=== PATIENT | female | born 1975 | race Caucasian/White ===

== ENCOUNTER → 2017-08-05 | Outpatient (CLI) | payer OTHER | LOC: FIMAGING 10:49 | PROVIDERS: ATTEND Obstetrics & Gynecology | DX: Z12.31 Encounter for screening mammogram for malignant neoplasm of breast (principal) ==

== ENCOUNTER → 2017-09-02 | Outpatient (CLI) | payer OTHER | LOC: FIMAGING 09:08 | PROVIDERS: ATTEND Obstetrics & Gynecology | DX: R92.8 Other abnormal and inconclusive findings on diagnostic imaging of breast (principal) ==

== ENCOUNTER → 2018-05-06 | Outpatient (CLI) | payer OTHER | LOC: FIMAGING 10:16 | PROVIDERS: ATTEND Obstetrics & Gynecology | DX: R92.8 Other abnormal and inconclusive findings on diagnostic imaging of breast (principal) ==

== ENCOUNTER → 2018-05-11 | Day surgery (SDC) | payer OTHER ==
[~2018-05-11] MED LIST: BUPIVACAINE 0.5% 30 ML SDV ONE; LIDOCAINE 1% 300 MG/30 ML SDV ONE; THROMBIN (BOVINE) 5,000 UNIT VIAL TP ONE
== END | disposition home or self-care (01) ==
LOC: FIMAGING 08:05
PROVIDERS: ATTEND Obstetrics & Gynecology
PROC: 0HBT3ZX Excision of Right Breast, Percutaneous Approach, Diagnostic (ICD-10-PCS; principal; 2018-05-11)
DX: N60.11 Diffuse cystic mastopathy of right breast (principal); R92.0 Mammographic microcalcification found on diagnostic imaging of breast; N60.91 Unspecified benign mammary dysplasia of right breast

== ENCOUNTER 2018-06-26 06:34 | Day surgery (SDC) | payer OTHER ==
--- NOTE | 2018-06-24 08:54 | GHP ---
DATE OF ADMISSION: 06/26/2018 DATE OF SURGERY: 06/26/2018. PREOPERATIVE DIAGNOSIS: Right breast atypical ductal hyperplasia. HISTORY OF PRESENT ILLNESS: The patient is a 42-year-old woman who had her 1st mammogram in August 19, which showed architectural distortion at the 12 o'clock position of the right breast. She had a diagnostic mammogram in August, which showed mild asymmetry in the upper inner right breast. No suspi cious calcifications. BI-RADS 3. Recommended 6-month repeat imaging. She had a repeat diagnostic m ammogram and ultrasound on May 06, 2018, which revealed persistent architectural change. Ultraso und showed heterogeneous diminished echogenicity. BI-RADS 4. She had a stereotactic breast biopsy o n 05/11/2018, which revealed patchy atypical ductal hyperplasia with fibrocystic changes and microcal cifications. She does not have a family or personal history of breast health issues. No family hist ory of ovarian cancer. She has never had abnormal breast imaging prior to this. Her 1st menses was at age 13. Last menses was 05/01. She has a Mirena IUD. She is G4, P3, and was 27 years old at the of her 1st child. PAST MEDICAL HISTORY: None. PAST SURGICAL HISTORY: None. MEDICATIONS: None. ALLERGIES: No known drug allergies. FAMILY HISTORY: Father with multiple myeloma. Mother with hypertension, hyperlipidemia, trigeminal neuralgia, and coronary artery disease. Maternal grandmother with leukemia. SOCIAL HISTORY: She denies recreational drug use or tobacco use. She uses alcohol daily. She exerc ises 1-3 times per week. She is with 3 children. REVIEW OF SYSTEMS: 10-point review of systems negative aside from the HPI. PHYSICAL EXAMINATION: GENERAL: Well-developed, well-nourished woman in no acute distress. HEENT: Normocephalic, atraumatic. No hearing deficits. Pupils equal and round. No scleral icterus. Mucou s membranes moist. NECK: Trachea midline. RESPIRATORY: Clear to auscultation bilaterally. No inc reased work of breathing. CARDIOVASCULAR: Regular rate and rhythm. No peripheral edema. BREASTS: Performed in upright and supine position evidence of previous breast biopsy right upper outer breast . No palpable masses bilaterally. No nipple drainage. No overlying skin changes. LYMPH: No cervi hazel, supraclavicular, or axillary lymphadenopathy. SKIN: Warm and dry. PSYCH: Mood and affect nor mal. NEURO: Grossly intact. IMPRESSION AND PLAN: 42-year-old woman with a new diagnosis of right breast atypical ductal hyperpla paige. She presents for a right breast mammogram needle localized lumpectomy to rule out any adjacent ductal carcinoma in situ. We discussed risks of surgery, including but not limited to, infection, bl eeding, damage to surrounding structures, and need for additional procedures. She understands the ri sks and would like to proceed. She has also had an elevated risk of developing a breast cancer. Her Tyrer-Cuzick Model Score is 7.1%, 10-year risk (population 1.8%), and lifetime risk of 42.6% (popula tion 12.8%). We discussed high-risk breast cancer screening including annual mammogram with MRI alte rnating every 6 months, genetic testing, and chemo prevention. She had her questions answered to her satisfaction. The patient was additionally seen by Dr. Elisa Berkowitz. /[id number]/MODL
[2018-06-26] MEDS ORDERED: ceFAZolin 2 GM/DEXTROSE 100 ML IV ONE (06:43)
[2018-06-26] MEDS ORDERED: LR 1,000 ML IV ONE (06:44)
[2018-06-26] MEDS ORDERED: LIDOCAINE 1% 300 MG/30 ML SDV ONE (07:27)
--- NOTE | 2018-06-26 07:28 | PDHPUP ---
History & Physical Update H&P update statement: This history and physical update is based on an assessment of the patient which was completed after admission or registration (within 24 hours), but prior to the surgery/procedure. H&P update: H&P reviewed & patient examined, no change in patient's condition since H&P completed
[2018-06-26] MEDS ORDERED: BUPIVACAINE 0.5% 30 ML SDV ONE (07:34)
[2018-06-26] MEDS ORDERED: PROPOFOL/EMULSION 500 MG/50 ML BOTTLE IV ONE (09:29)
[2018-06-26] MEDS ORDERED: LIDOCAINE 2% 100 MG/5 ML SYR ONE (09:29)
[2018-06-26] MEDS ORDERED: ONDANSETRON 4 MG/2 ML VIAL ONE (09:29)
[2018-06-26] MEDS ORDERED: fentaNYL 100 MCG/2 ML INJ ONE ×2 (09:29→10:31)
[2018-06-26] MEDS ORDERED: DEXAMETHASONE 4 MG/ML VIAL ONE (09:29)
[2018-06-26] MEDS ORDERED: MIDAZOLAM 2 MG/2 ML VIAL ONE (09:57)
[2018-06-26] MEDS ORDERED: MIDAZOLAM 2 MG/2 ML VIAL IVP ONE (09:57)
--- NOTE | 2018-06-26 09:57 | PDANEPAE ---
ANE History of Present Illness breast mass, here for bx and mass removal ANE Past Medical History - Cardiovascular History Hx Hypertension: No Hx Arrhythmias: No Hx Chest Pain: No Hx Coronary Artery / Peripheral Vascular Disease: No Hx CHF / Valvular Disease: No Hx Palpitations: No - Pulmonary History Hx COPD: No Hx Asthma/Reactive Airway Disease: No Hx Recent Upper Respiratory Infection: No Hx Oxygen in Use at Home: No Hx Sleep Apnea: No Sleep Apnea Screening Result - Last Documented: Negative Pulmonary History Comment: CHRONIC NON PRODUCTIVE COUGH SINCE 05/2018 - Neurologic History Hx Cerebrovascular Accident: No Hx Seizures: No Hx Dementia: No - Endocrine History Hx Diabetes: No - Renal History Hx Renal Disorders: No - Liver History Hx Hepatic Disorders: No - Neurological & Psychiatric Hx Hx Neurological and Psychiatric Disorders: No - Cancer History Hx Cancer: No - Congenital Disorder History Hx Congenital Disorders: No - GI History Hx Gastrointestinal Disorders: Yes Gastrointestinal History Comment: INTERMITTENT HEARTBURN - Other Health History Other Health History: FAINTED POST NEEDLE BIOPSY - Chronic Pain History Chronic Pain: No - Surgical History Prior Surgeries: NONE ANE Review of Systems Review of Systems: - Exercise capacity METS (RN): 6 METS ANE Patient History - Allergies Allergies/Adverse Reactions: No Known Allergies Allergy (Unverified 06/24/18 08:23) - Home Medications Home Medications: Vitamin C DAILY 06/25/18 [Last Taken 06/19/18] - NPO status NPO Since - Liquids (Date): 06/25/18 NPO Since - Liquids (Time): 22:00 NPO Since - Solids (Date): 06/25/18 NPO Since - Solids (Time): 20:00 - Smoking Hx Smoking Status: Never smoked - Family Anes Hx Family Hx Anesthesia Complications: NEG ANE Labs/Vital Signs - Vital Signs Blood Pressure: 118/74 Heart Rate: 98 Respiratory Rate: 16 O2 Sat (%): 98 Height: 154.94 cm Weight: 63.503 kg ANE Physical Exam - Airway Neck exam: FROM Mallampati Score: Class 1 Mouth exam: normal dental/mouth exam - Pulmonary Pulmonary: no respiratory distress, no rales or rhonchi - Cardiovascular Cardiovascular: regular rate and rhythym, no murmur, rub, or gallop - ASA Status ASA Status: II ANE Anesthesia Plan Anesthesia Plan: GA with mask Total IV Anesthesia: Yes
[2018-06-26] MEDS ORDERED: NALOXONE HCL 0.4 MG/ML INJ IVP PRN (10:43)
[2018-06-26] MEDS ORDERED: LR 500 ML IV PRN (10:43)
[2018-06-26] MEDS ORDERED: HYDROCODONE/APAP 5/325 TAB PO PRN (10:43)
[2018-06-26] MEDS ORDERED: ONDANSETRON 4 MG/2 ML VIAL IVP PRN (10:43)
[2018-06-26] MEDS ORDERED: PROMETHAZINE HCL 25 MG/ML INJ IVP PRN (10:43)
[2018-06-26] MEDS ORDERED: fentaNYL 100 MCG/2 ML INJ IVP PRN (10:43)
[2018-06-26] MEDS ORDERED: HYDROmorphONE/DILAUDID 2 MG/ML INJ IVP PRN (10:43)
[2018-06-26] MEDS ORDERED: MEPERIDINE 25 MG/0.5 ML AMP IVP PRN (10:43)
--- NOTE | 2018-06-26 10:47 | POSTOPPROG ---
Post Op Note Date of Operation: 06/26/18 Surgeon: Elisa Berkowitz Glass Sander: [email or web address] Anesthesiologist: sumanth Anesthesia: IV Sedation Pre-op Diagnosis: R ADH Post-op Diagnosis: same Indication: 42 yo with R ADH Procedure: R needle loc excisional biopsy Findings: clip in specimen Inf/Abcess present in the surg proc area at time of surgery?: No Depth: Superfical (Skin SQ) Specimen(s): breast tissue
--- NOTE | 2018-06-26 11:03 | GOP ---
DATE OF OPERATION: 06/26/2018 SURGEON: Elisa Berkowitz MD MANAGER PHARMACY: Millie Fermin, [place]. ANESTHESIA: IV general. ANESTHESIOLOGIST: Aristides Stearns DO PREOPERATIVE DIAGNOSIS: Right breast atypical ductal hyperplasia. POSTOPERATIVE DIAGNOSIS: Right breast atypical ductal hyperplasia. PROCEDURE PERFORMED: Right breast needle localized excisional biopsy. FINDINGS: Clip contained within the specimen. SPECIMENS: Breast tissue. ESTIMATED BLOOD LOSS: 10 cc. INDICATIONS: The patient is a 42-year-old woman who had a screening mammogram. Calcifications were noted. She had a biopsy that showed atypical ductal hyperplasia. Excisional biopsy was warranted. DESCRIPTION OF PROCEDURE: Patient was brought into the operating room, placed supine on the table, a nd monitored anesthesia care with IV sedation was performed. Her right breast was prepped and draped in the usual sterile fashion. I infiltrated all sites with 0.5% Marcaine prior to making incisions. I made an ellipse around the wire. I created superior and inferior skin flaps and was marked. I e xcised down beyond the level of the wire with inked green anterior, red superior, yellow medial, blue inferior, orange lateral, black posterior. It was sent to Radiology and then to Pathology. Hemosta sis achieved in the cavity. Deep layer closed with 3-0 Vicryl. Skin closed with 3-0 Vicryl followed by 4-0 Monocryl. Mastisol, Steri-Strips, sterile dressing applied. She was awakened in the operati ng room, transferred to PACU in stable condition. /[id number]/MODL
[2018-06-26 13:14] VITALS: BP 126/79
== END 2018-06-26 13:14 | disposition home or self-care (01) ==
LOC: FIMAGING 06:34
PROVIDERS: ATTEND Surgery
PROC: 0HHT3YZ Insertion of Other Device into Right Breast, Percutaneous Approach (ICD-10-PCS; 2018-06-26)
PROC: 0HBT0ZZ Excision of Right Breast, Open Approach (ICD-10-PCS; principal; 2018-06-26 11:30)
DX: N60.91 Unspecified benign mammary dysplasia of right breast (principal)
CPT/HCPCS: J0690; J1100; J2001; J2250; J2405; J2704; J3010